=== PATIENT | female | born 1980 | race Asian ===

== ENCOUNTER 2017-12-10 11:12 | Emergency (ER) | payer OTHER ==
[2017-12-10] MEDS: LIDOCAINE 1% (MDV) 10 ML INJ INJ (12:13)
[2017-12-10] MEDS: HYDROCODONE/APAP (5/325) TAB PO (12:48)
[2017-12-10] MEDS: morphine 4 MG/ML VIAL IM (12:51)
[2017-12-10] MEDS: DIPHTH/TET/ACEL PERTUSS (ADULT) 0.5 ML VIAL IM* (12:52)
[2017-12-10] MEDS: ONDANSETRON (ODT) 4 MG TAB ODT (12:52)
[2017-12-10] MEDS: LIDOCAINE 1% (MPF) 30 ML INJ INJ (13:18)
[2017-12-10] MEDS: LIDOCAINE 1% (MDV) 20 ML INJ INJ (13:27)
== END 2017-12-10 14:14 | disposition home or self-care (01) ==
LOC: FTE 14:14
DX: S61.412A Laceration without foreign body of left hand, initial encounter (principal); S61.239A Puncture wound without foreign body of unspecified finger without damage to nail, initial encounter; W54.0XXA Bitten by dog, initial encounter; Y92.9 Unspecified place or not applicable; Z23 Encounter for immunization
CPT/HCPCS: 12001; 73130-LT; 90471; 90715; 96372; 99284-25